=== PATIENT | female | born 1995 | race Caucasian/White ===

== ENCOUNTER 2022-06-02 18:33 | Emergency (ER) | payer OTHER, SELFPAY ==
[2022-06-02 18:47] VITALS: BP 133/58; PULSE 88; RESP 18; TEMP 36.7; O2SAT 99; BMI 32.2
--- OUTSIDE RECORDS SUMMARY | 2022-06-02 21:25 | XMS_ITS | Continuity of Care Document ---
:1995 Author Organization [facility] Address [address] [place] [id number]- Care Team Providers Name Role Phone Isha NIETO, Rena M Primary Care Physician Encounter [facility] Date(s): 04/04/20 - 04/04/[address] [id number]- [facility] Discharge Disposition: A-D/C Walkout Attending Physician: Not on Staff, Attending MD Admitting Physician: Not on Staff, Admitting MD Referring Physician: Not on Staff, Referring MD Allergies, Adverse Reactions, Alerts Substance Reaction Severity Status penicillins Active
--- NOTE | 2022-06-02 21:50 | ED_ITS ---
HPI - Wound/Laceration General Chief Complaint: Wound/Laceration Stated Complaint: bottom lip lac./work inj Time Seen by Provider: 06/02/22 21:05 Source: patient Mode of arrival: ambulatory Limitations: no limitations History of Present Illness Medication Instructions Recorded cephalexin 500 mg capsule 500 mg PO TID 5 days #15 caps 06/02/22 Location: other (Left lower lobe) Place: work Associated symptoms: none
--- NOTE | 2022-06-02 21:50 | ED.WOUNDLAC ---
HPI - Wound/Laceration General Chief Complaint: Wound/Laceration Stated Complaint: bottom lip lac./work inj Time Seen by Provider: 06/02/22 21:05 Source: patient Mode of arrival: ambulatory Limitations: no limitations History of Present Illness HPI narrative: 27-year-old female who presents emergency department for evaluation of a laceration to her left lower lip. The patient works as a dog pound attendant. She states that she was going to cut the dog's nails when the dog lunged at her and caught her lower lip with its nails. Patient denies any other injury. The patient is not sure when her last tetanus shot was given. Onset (ago): hour(s) (For) Location: other (Left lower lobe) Place: work Patient tetanus UTD: No Context: accidental Associated symptoms: none Related Data Previous Rx's Medication Instructions Recorded cephalexin 500 mg capsule 500 mg PO TID 5 days #15 caps 06/02/22 Allergies Allergy/AdvReac Type Severity Reaction Status Date / Time Penicillins Allergy Mild Hives Verified 06/02/22 18:46 Review of Systems Review of Systems: Yes all other systems are reviewed and are negative [facility] Past Medical History [facility] Narrative: Past medical history: None. Past surgical history: None. Social history: She denies tobacco use. She occasionally drinks alcohol. She denies drug use. Social History Social History Advance Directives: No Advance Directives Information Provided: No Physical Exam Vital Signs: Vital Signs: Last Vital Signs Temp 98.1 F 06/02/22 18:47 Pulse 88 06/02/22 18:47 Resp 18 06/02/22 18:47 BP 133/58 L 06/02/22 18:47 Pulse Ox 99 06/02/22 18:47 O2 Del Method 06/02/22 18:47 BMI result Body Mass Index 32.2 Const: Other: Awake, alert, female patient, very pleasant and cooperative, in no distress. HEENT: Other: Head is normal cephalic and atraumatic, pupils were equal round reactive light, sclera conjunctiva were normal. The patient's left lower lip revealed a 1.2 cm linear, laceration with extrusion of the subcutaneous fat. Course Course Course Narrative: 27-year-old female patient who presents emergency department for evaluation of a 1.2 cm linear laceration to the left lower lip with extrusion of the underlying fat. 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 The patient was going to cut a dog's nails when the dog lunged at the patient and cut her lower lip with its nails. The patient did not know in her last tetanus shot was given therefore she was given a Tdap vaccination here in the emergency department. She was also given Keflex 500 mg orally and started on Keflex 500 mg 3 times a day for 5 days prophylactically to try to prevent infection of this wound. Patient's wound was repaired with Vicryl Rapide 5.0 sutures. A total of 5 sutures were used. Patient was given printed and verbal instructions and discharged home. Procedures Laceration 1.2 cm left lower lip laceration with extrusion of underlying fat: Site: lip Side (If applicable): left Size (cm): 1.2 Description: linear Depth: simple, single layer (With extrusion of underlying fat) Local Anesthetic: lidocaine 2% and with epi Amount of anesthesia used (mL): 3 Pre-repair: wound explored (Irrigated with normal saline) Skin layer closed with: vicryl (Vicryl Rapide ) Size (cm): 5-0 Number of sutures: 5 Technique: simple, interrupted (Fat was tucked back in to the wound prior to closure) Discharge Plan Discharge Clinical Impression: Laceration of lip Qualifiers: Encounter type: initial encounter Qualified Code(s): S01.511A - Laceration without foreign body of lip, initial encounter Patient Disposition: Home, Self-Care Instructions: Laceration (ED) Additional Instructions: Your lip was closed with Vicryl Rapide 5.0 sutures. These are sutures that dissolved and should dissolve in 7-14 days. You got 5 stitches If the stitches do not dissolve after 10-14 days then you can get them removed by your doctor, an urgent care clinic or the emergency department. Take Keflex (cephalexin) 500 mg pills, 1 pill 3 times a day for 5 days. This is an antibiotic that I am starting to try to prevent infection of your lip. Watch for signs of infection which would include increased swelling, drainage of pus, increased pain, redness or swelling of your face. Take ibuprofen 200 mg pills, 2 pills every 6 hours as needed for pain. Take Tylenol (acetaminophen) 500 mg pills, 2 pills every 4 to 6 hours as needed for pain. Follow-up with your doctor in 2 days. Please return to the emergency department if your symptoms get worse or if you develop any symptoms that are concerning to you. You were not certain when your last tetanus shot was given therefore we gave you a tetanus shot here in the emergency department. The tetanus shot includes 3 vaccinations (Tdap)-tetanus, diptheria and Pertussin. You will need a booster shot and 10 years (2031) and you may need a repeat shot in 5-10 years if you get a high risk tetanus cut/laceration. Prescriptions: New cephalexin 500 mg capsule 500 mg PO TID 5 Days Qty: 15 0RF
[2022-06-02] MEDS: Diphth,Pertus(ACell),Tet Adult 0.5 ML SYRINGE IM (21:51)
[2022-06-02] MEDS: Lidocaine HCl 2% PF/Epi 1:200 20 ML VIAL INFILTRATI (21:51)
[2022-06-02] MEDS: cephALEXin 500 MG CAPSULE PO (21:52)
== END 2022-06-02 22:10 | disposition home or self-care (01) ==
PROVIDERS: Emergency Provider Emergency Medicine Emergency Medical Services
DX: S01.511A Laceration without foreign body of lip, initial encounter (principal); W45.8XXA Other foreign body or object entering through skin, initial encounter; Y93.K3 Activity, grooming and shearing an animal; Y92.59 Other trade areas as the place of occurrence of the external cause; Y99.0 Civilian activity done for income or pay
CPT/HCPCS: 12011; 90471; 90715; 99281; 99284